=== PATIENT | male | born 1970 | race Caucasian/White ===

== ENCOUNTER 2024-05-25 15:52 | Emergency (ER) | payer OTHER, SELFPAY ==
[2024-05-25 15:55] VITALS: BP 150/101
[2024-05-25 16:07] LABS: % Basophils 1.1 % (0-2); % Eosinophils 1.1 % (0-6); % Immature Granulocytes 0.2 % (0-0.5); % Lymphocytes 39.3 % (20.5-51.1); % Monocytes 10.5 % (1.7-9.3); % Neutrophils 47.8 % (42.2-75.2); Absolute Basophils 0.1 10^3/uL (0-0.2); Absolute Eosinophils 0.1 10^3/uL (0-0.7); Absolute Lymphocytes 1.8 10^3/uL (1.2-3.4); Absolute Monocytes 0.5 10^3/uL (0.1-0.6); Absolute Neutrophils 2.2 10^3/uL (1.4-6.5); Hematocrit 45.3 % (39.0-52.0); Hemoglobin 16.7 g/dL (13.0-18.0); Mean Corp Hgb Conc. 36.9 g/dL (33.0-37.0); Mean Corpuscular Hgb 33.9 pg (27.0-31.0); Mean Corpuscular Volume 92.1 fL (80.0-94.0); Mean Platelet Volume 9.3 fL (7.4-10.4); Nucleated Red Blood Cells % 0 % (-); Platelet Count 200 10^3/uL (130-400); Red Blood Cell Count 4.92 10^6/uL (4.70-6.10); Red Cell Dist. Width 11.1 % (11.5-14.5); White Blood Cell Count 4.6 10^3/uL (4.8-10.8)
[2024-05-25 16:32] LABS: ALT (SGPT) 137 U/L (0-50); AST (SGOT) 74 U/L (17-59); Albumin 5.1 g/dl (3.5-5.0); Alkaline Phosphatase 95 U/L (38-126); Blood Urea Nitrogen 9 mg/dl (9-20); Calcium 9.5 mg/dl (8.4-10.2); Carbon Dioxide 25 mmol/L (22-30); Chloride 96 mmol/L (98-107); Glucose 105 mg/dl (70-99); Lipase 91 U/L (23-300); Sodium 137 mmol/L (135-145); Total Bilirubin 1.2 mg/dl (0.2-1.3); Total Protein 7.9 g/dl (6.3-8.2); eGFR > 60.00
--- NOTE | 2024-05-25 17:28 | ED.GENMED ---
History of Present Illness
General
Chief Complaint: Abdominal Pain
Source: patient and spouse
Time Seen by Provider: 05/25/24 17:13
History of Present Illness
History of Present Illness:
This patient is a 53-year-old male presents emergency department with complaints of a headache, nausea, and vomiting that started last week. He denies actual abdominal pain but rather says he feels 'queasy' also described as nausea. He has not
vomited in about 48 hours but still has persistent nausea at this time. He notes that he has what he describes as a 'migraine', has a prior history of an very typical of today. This started about a week ago, is located on the right side, and is
associated with mild photophobia. He did have diarrhea earlier in the week which is now resolved. Patient denies fever, chills, chest pain, dyspnea, back pain, urinary symptoms. The patient denies change in vision, change in speech, numbness,
focal weakness. However, his states that since late fall 2023 he has episodes where he seems 'foggy', where his memory seems off, and sometimes he is off balance. The patient does state that sometimes he feels a little off balance when he
uses the restroom in the middle the night, but denies that any longer.
Past History
Past History
ED Past Medical History: Other (Migraines)
ED Past Surgical History: Orthopedic and Other (Hernia)
Social History
Tobacco: Non-smoker
Alcohol: Occasional
Drug: None
Personal:
Living: with family
Phy Exam
Physical Exam
Physical Exam:
GENERAL: Alert , in no apparent distress, nontoxic
EYE: pupils equal and reactive, EOMI, no nystagmus, no objective photophobia
NECK: Supple, no significant adenopathy.
ENT: o/p clr, mmm.
CARDIAC: Regular rate and rhythm .
LUNGS: Clear breath sounds bilaterally, no acute respiratory distress, no wheezes/rales/rhonchi
ABDOMEN: Soft, without focal tenderness, no r/g, no cvat
NEUROLOGICAL: Alert and oriented, no focal neuro deficits, motor 5 out of 5, sensory intact, cranial nerves II through XII intact, gait normal, normal Romberg
SKIN: Warm and dry, skin intact.
MUSCULOSKELETAL: No edema, well perfused.
PSYCH: Normal and appropriate interaction.
Course
Orders/Labs/Results
Orders:
Orders
05/25/24 16:00
Complete Blood Count/With Diff Urgent
Comprehensive Metabolic Panel Urgent
Lipase Urgent
05/25/24 17:27
CT Head W/o Iv Contrast Urgent
Comment:
Reason For Exam: r sided h/a
Cardiac Monitoring- Treatment ONCE
0.9% Sodium Chloride 1000 ml [Nss] 1,000 ml IV BOLUS
Metoclopramide [Reglan] 10 mg IV NOW STA
US Abdomen Complete/Upper Urgent
Comment:
Reason For Exam: n/v
Abnormal Lab Results
05/25/24
16:00
WBC 4.6 L 10^3/uL
(4.8-10.8)
MCH 33.9 H pg
(27.0-31.0)
RDW 11.1 L %
(11.5-14.5)
Monocytes % 10.5 H %
(1.7-9.3)
Chloride 96 L mmol/L
(98-107)
Glucose 105 H mg/dl
(70-99)
AST 74 H U/L
(17-59)
ALT 137 H U/L
(0-50)
Albumin 5.1 H g/dl
(3.5-5.0)
05/25/24 16:00
05/25/24 16:00
Vital Signs
Initial and Last Documented VS:
Initial Vital Signs
Temp Pulse Resp BP Pulse Ox
98.1 F 107 16 150/101 98
05/25/24 15:55 05/25/24 15:55 05/25/24 15:55 05/25/24 15:55 05/25/24 15:55
Last Documented Vital Signs
Temp Pulse Resp BP Pulse Ox
98.1 F 107 16 134/86 95
05/25/24 15:55 05/25/24 15:55 05/25/24 15:55 05/25/24 17:31 05/25/24 17:32
*Critical Care Note
Total Time (30-74mins, 75-104mins- exclusive of procedures): Not Applicable
Update Note
Update Note:
Patient presents to the Emergency Department with headache nausea vomiting diarrhea
Number and Complexity of Problems Addressed at the Encounter
� Chronic conditions affecting care:
� Acute Exacerbation and/or Progression of Chronic Illness:
� Differential Diagnosis includes: But not limited to migraine, intracranial tumor, gastroenteritis, electrolyte disturbance, etc. etc.
Amount and/or Complexity of Data to be Reviewed and Analyzed
� I performed an independent evaluation of and my interpretation is:
EKG:
CT: NAD
Xrays:
Laboratory Studies: Mild LFT abnormalities noted
Other: Ultrasound abdomen hepatic steatosis
� Review of other/old records reveals:
� Clinical information was obtained by an independent historian: who is bedside
� Prescriptions/Medications Considered but not given:
� Further testing considered but not performed:
Risk of Complications and/or Morbidity or Mortality of Patient Management
� Social determinants of health affecting care:
� Discussion with other providers (PCP, Hospitalists, Consultants, etc):
� Escalation of care including admission/observation vs risk of discharge considered: 7:32 PM patient awake alert neurologically intact and feeling well no complaints headache resolved no nausea. Discussed with patient
abnormalities noted here incidentally including LFT abnormalities, ultrasound finding, etc. These results have been printed out for him and he was instructed to get close follow-up regarding.
ED Attending Note
-
Portions of this chart may have been created with voice recognition software.� Occasional wrong word or��sound alike� substitutions may have occurred due to the inherent limitations of voice recognition software.
Discharge Plan
Departure
Patient Disposition: Home (Routine Discharge)
Date of Disposition: 05/25/24
Time of Disposition: 19:32
Patient with high blood pressure during this ER visit?: Yes
Condition: Good
Discharge Problem:
Migraine, Hepatic steatosis
Instructions: Nausea and Vomiting, Adult (DC), Migraine in adults, BLOOD PRESSURE
Referrals:
Abner Valdez MD [Family Provider] - Next open appointment
Debbie Warner DO [Active] - Next open appointment
Activity Restrictions/Additional Instructions:
YOU HAVE ABNORMALITIES OF YOUR BLOOD WORK AND ULTRASOUND THAT REQUIRE FOLLOW-UP. PLEASE CALL YOUR DOCTOR TO HAVE THIS FURTHER EVALUATED PROMPTLY. IF YOU DEVELOP RECURRENT VOMITING, ANY FEVER, ABDOMINAL PAIN, SEVERE HEADACHE, OR OTHER WORRISOME
SIGNS, PLEASE RETURN TO THE ER IMMEDIATELY.
Interventions
Interventions:
*Risk Screen - Suicide Last Done: 05/25/24 15:55
*General Assessment Last Done: 05/25/24 17:37
*Neglect/Abuse Screening Last Done: 05/25/24 15:55
*ED COVID-19 Vaccine History Last Done: 05/25/24 17:37
PZ-[id number]-Frbyvnhhwu Assessment Last Done: 05/25/24 17:37
Discharge Date and Time
Print Language: SCOTTISH
[2024-05-25 17:31] VITALS: BP 134/86
[2024-05-25] MEDS: REGLAN 10 MG IV (17:52)
[2024-05-25] MEDS: NSS 1000 IV (17:52)
[2024-05-25 17:54] VITALS: BP 141/89
[2024-05-25 18:00] VITALS: BP 131/86
== END 2024-05-25 20:30 | disposition home or self-care (01) ==
LOC: EMR 15:52
PROVIDERS: EMERGENCY PHYSICIAN Emergency Medicine; FAMILY PHYSICIAN Family Medicine
DX: G43.909 Migraine, unspecified, not intractable, without status migrainosus (principal); R11.0 Nausea; K76.0 Fatty (change of) liver, not elsewhere classified
CPT/HCPCS: 99284; 96374; 96361; 70450; 76700; 80053; 83690; 85025

== ENCOUNTER 2024-12-05 16:02 | Emergency (ER) | payer OTHER, SELFPAY ==
[2024-12-05 16:23] VITALS: BMI 28.0
[2024-12-05 16:32] LABS: Hematocrit 40.1 % (39.0-52.0); Hemoglobin 14.4 g/dL (13.0-18.0); Mean Corp Hgb Conc. 35.9 g/dL (33.0-37.0); Mean Corpuscular Volume 92.8 fL (80.0-94.0); Nucleated Red Blood Cells % 0 % (-); Platelet Count 209 10^3/uL (130-400); Red Cell Dist. Width 11.8 % (11.5-14.5)
[2024-12-05 17:00] VITALS: BP 112/72
[2024-12-05 17:06] LABS: Troponin I 0.021 ng/ml
[2024-12-05 17:26] LABS: ALT (SGPT) 33 U/L (0-50); AST (SGOT) 36 U/L (17-59); Albumin 4.6 g/dl (3.5-5.0); Alkaline Phosphatase 89 U/L (38-126); Blood Urea Nitrogen 9 mg/dl (9-20); Calcium 9.1 mg/dl (8.4-10.2); Carbon Dioxide 24 mmol/L (22-30); Chloride 101 mmol/L (98-107); Estimated Creatinine Clearance > 125 ml/min; Glucose 88 mg/dl (70-99); Potassium 4.0 mmol/L (3.5-5.1); Sodium 136 mmol/L (135-145); Total Protein 7.2 g/dl (6.3-8.2); eGFR > 60.00
[2024-12-05 18:00] VITALS: BP 111/72
[2024-12-05 19:00] VITALS: BP 114/75
--- NOTE | 2024-12-05 19:27 | ED.GENMED ---
History of Present Illness
General
Chief Complaint: Alcohol Problem
Source: patient
Exam Limitations: none
Time Seen by Provider: 12/05/24 19:10
Nursing documentation reviewed up to this point in time: agreed with
History of Present Illness
History of Present Illness:
54-year-old male presents to the ER for evaluation. Patient was brought by EMS at bedside reports she was upstairs on the second floor bathroom and heard a thud and found patient on the floor in the kitchen. She attempted to call his name but
he was mumbling. EMS presented to the scene. Patient apparently was confused and not able to answer EMS questions. reports patient is an alcoholic. He admits to drinking today at the [employer] club. He does not remember walking into his
house or passing out. He does not remember EMS helping him.
He does admit to drinking alcohol about 4-5 times a week.
He denies any pain from injury. He denies any headache or neck pain. He is not on blood thinners ,
he is on Cymbalta for depression
Patient was hospitalized at [facility] previously. No prior history of alcohol withdrawal seizures
Past History
Past History
ED Past Medical History: Other (Migraines)
ED Past Surgical History: Orthopedic and Other (Hernia)
Social History
Tobacco: Non-smoker
Alcohol: Occasional
Drug: None
Personal:
Living: with family
Phy Exam
General Physical Exam
General Presentation: no apparent distress
General age: appears stated age
General Skin: warm and dry
General Habitus: normal
General Mental: alert
General Hydration: appears well hydrated
ENT Exam
ENT Exam: EOMI
Eye Exam
Eye Exam: PERRL and EOMI
Eye Exam General: PERRL: bilateral and EOM intact: bilateral
Pupil Exam: Bilateral: round and reactive
Cardiovascular Exam
Cardiovascular Exam: regular rate/rhythm, no murmur and normal peripheral pulses
Pulmonary Exam
Pulmonary Exam: lungs clear
Neurological Exam
Neurological Exam: alert, oriented x3, no motor deficits and no sensory deficits
Musculoskeletal Exam
Musculoskeletal Exam: full ROM and other (No obvious head injury no bony cervical spine tenderness)
Skin Exam
Skin Exam: normal color and warm/dry
Psychiatric Exam
Psychiatric Exam: normal mood/affect
Scores
Withdrawal Assessment of Alcohol
Withdrawal Assessment Completed?: Yes
Nausea and Vomiting: No nausea and no vomiting
Tactile Disturbances: None
Tremor: No tremor
Auditory Disturbances: Not present
Paroxysmal Sweats: No sweat visible
Visual Disturbances: Not present
Anxiety: No anxiety, at ease
Headache, Fullness in Head: Not present
Agitation: Normal activity
Orientation and clouding of sensorium: Oriented and can do serial additions
Total CIWA Score: 0
Alcohol Withdrawal Medication Recommendation: Equal to MSAS Score 0-4. Monitor & re-assess q2hrs, NO MEDICATION NEEDED
Course
Orders/Labs/Results
Orders:
Orders
12/05/24 16:11
Electrocardiogram (*1) Urgent
Reason for Study: Syncope
EKG- Treatment ONCE
12/05/24 16:26
Alcohol Urgent
Complete Blood Count/With Diff Urgent
Comprehensive Metabolic Panel Urgent
Troponin I Urgent
12/05/24 19:39
Add On- LAB Urgent
Tests Added?: alcohol level
12/05/24 19:53
CT Cervical Spine W/o Iv Contr Urgent
Comment:
Reason For Exam: trauma
CT Head W/o Iv Contrast Urgent
Comment:
Reason For Exam: trauma
12/05/24 21:39
0.9% Sodium Chloride 1000 ml [Nss] 1,000 ml IV BOLUS
Abnormal Lab Results
12/05/24
16:26
RBC 4.32 L 10^6/uL
(4.70-6.10)
MCH 33.3 H pg
(27.0-31.0)
Creatinine 0.6 L mg/dL
(0.7-1.3)
12/05/24 16:26
12/05/24 16:26
Vital Signs
Initial and Last Documented VS:
Initial Vital Signs
Temp Pulse Resp Pulse Ox
97.7 F 89 16 94
12/05/24 16:05 12/05/24 16:05 12/05/24 16:05 12/05/24 16:05
Last Documented Vital Signs
Temp Pulse Resp BP Pulse Ox
97.7 F 75 14 144/75 95
12/05/24 16:05 12/06/24 08:00 12/06/24 03:55 12/06/24 07:00 12/06/24 03:55
MDM/Problems Addressed
Differential Diagnosis Includes:
Not limited to alcohol use disorder, head injury contusion intracranial hemorrhage cervical fracture
MDM/Problems Addressed:
As documented patient is a 54-year-old male with history of alcohol abuse brought by EMS. reports she heard patient fall. Patient presents awake alert he admits to drinking vodka sodas at a country club he reports he drove home but does not
recall walking into his house or passing out. He does not recall EMS. He has no complaints upon arrival no obvious head injury no blood thinners CT head and cervical spine negative.
reports patient's alcohol use has worsened. Prior treatment coming to the ER she did call speak with [facility] alcohol rehab. Labs unremarkable. Patient has no history of alcohol withdrawal or withdrawal seizures. reports patient mainly
drinks in the evenings however functions throughout the day.
Patient was evaluated by [facility], they do have a bed at that facility but not until the morning. Patient expresses that he does not want to go but will go.
He is awake alert he is cooperative he is able to answer questions and mentating normally.
Will continue to monitor patient with plan for patient to be picked up by credit resolution representative from [facility] rehab in the morning
Chronic conditions affecting care:
Chronic alcohol use
*Radiology
Radiology exam reviewed: radiology read reviewed
*Pulse Oximetry
SaO2: 94
Oxygen Mode of Delivery: Room air
Patient hypoxic: no
*EKG
Interpreted by ED Provider?: Yes
Heart Rate: 83
Rate: normal
Rhythm: sinus
Ischemia: non-specific ST changes
*Critical Care Note
Total Time (30-74mins, 75-104mins- exclusive of procedures): Not Applicable
ED Attending Note
-
Portions of this chart may have been created with voice recognition software.� Occasional wrong word or��sound alike� substitutions may have occurred due to the inherent limitations of voice recognition software.
Discharge Plan
Departure
Patient Disposition: Acute Rehab Facility
Date of Disposition: 12/05/24
Time of Disposition: 23:39
Patient with high blood pressure during this ER visit?: No
Condition: Fair
Covid-19: Not Applicable
Discharge Problem:
Alcohol use disorder
Referrals:
Candy Bowling MD [Family Provider, Family Practice]
Activity Restrictions/Additional Instructions:
You will be going directly to [facility]
Interventions
Interventions:
*Risk Screen - Suicide Last Done: 12/05/24 16:05
*General Assessment Last Done: 12/05/24 16:05
*Neglect/Abuse Screening Last Done: 12/05/24 16:05
*ED- Fall Risk Assessment Last Done: 12/06/24 04:30
*ED COVID-19 Vaccine History Last Done: 12/05/24 16:23
*Nursing Disposition Last Done: 12/06/24 09:48
ED- Neurological Assessment Last Done: 12/05/24 16:23
ED-Psychological Assessment Last Done: 12/05/24 16:23
Discharge Date and Time
Discharge Date/Time: 12/06/24 09:49
Print Language: SAO TOMEAN
[2024-12-05 20:00] VITALS: BP 126/72
[2024-12-05 21:00] VITALS: BP 129/70
[2024-12-05] MEDS: NSS 1000 IV (21:40)
[2024-12-05 22:00] VITALS: BP 133/78
[2024-12-06] VITALS (7 sets, daily range): BP systolic 121–144; BP diastolic 65–75
== END 2024-12-06 09:49 ==
LOC: EMR 16:02
PROVIDERS: Emergency Medicine; EMERGENCY PHYSICIAN Emergency Medicine; FAMILY PHYSICIAN Family Medicine
DX: F10.20 Alcohol dependence, uncomplicated (principal)
CPT/HCPCS: 99284; 96360; 70450; 72125; 80053; 82077; 84484; 85025; 93005